=== PATIENT | female | born 1940 | race Caucasian/White ===

== ENCOUNTER → 2016-04-25 | Outpatient (CLI) | payer MEDICARE, OTHER ==
[~2016-04-25] MED LIST: ATIVAN0.5 MG PO; CARDI-OMEGA1000 MG PO; LEXAPRO 10MG10 MG PO; MULTIVITAMIN1 SGL PO; PREMARIN VAG42.5 GM TOP
== END ==
LOC: LAB 10:24
DX: Z00.00 Encounter for general adult medical examination without abnormal findings (principal); R15.9 Full incontinence of feces; R41.3 Other amnesia

== ENCOUNTER → 2017-04-24 | Outpatient (CLI) | payer MEDICARE, OTHER ==
[2015-12-19 19:51] VITALS: BP 128/70
[2017-04-24 08:53] LABS: EOS # 0.1 (0.04-0.40); EOS % 1.7 % (1.0-5.0); HEMATOCRIT 44.6 % (37.0-47.0); HEMOGLOBIN 14.6 g/dL (12.5-16.0); MEAN CELL VOLUME 96 fl (78-100); MEAN CORPUSCULAR HEMOGLOBIN 32 pg (27-31); MEAN CORPUSCULAR HGB CONC 33 g/dL (33-37); MEAN PLATELET VOLUME 8.9 fl (7.4-10.4); MONO # 0.5 (0.20-0.80); NEU # 3.8 (1.40-6.50); PLATELET COUNT 319 K/mm3 (130-400); RED BLOOD COUNT 4.63 M/mm3 (4.10-5.30); WHITE BLOOD COUNT 5.4 K/mm3 (4.8-10.8)
[2017-04-24 09:01] LABS: ALBUMIN 3.9 g/dL (3.5-5.0); BUN/CREATININE RATIO 17.2 (6.0-26.0); CALCIUM 9.4 mg/dL (8.4-10.2); POTASSIUM 4.2 mmol/L (3.6-5.0); TOTAL BILIRUBIN 0.5 mg/dL (0.2-1.3); TOTAL PROTEIN 6.9 g/dL (6.3-8.2)
[2017-04-24 23:46] LABS: T3 FREE 2.2 pg/mL (1.7-3.7)
== END ==
LOC: LAB 08:09
PROVIDERS: Nurse Practitioner Family
DX: R41.3 Other amnesia (principal); E05.90 Thyrotoxicosis, unspecified without thyrotoxic crisis or storm; R94.6 Abnormal results of thyroid function studies; Z88.1 Allergy status to other antibiotic agents; Z88.2 Allergy status to sulfonamides; Z88.7 Allergy status to serum and vaccine

== ENCOUNTER 2019-04-10 17:22 | Emergency (ER) | payer MEDICARE, OTHER ==
[2019-04-10] MEDS ORDERED: MUCINEX 60600 MG/TA1 PO (18:06)
[2019-04-10] MEDS ORDERED: MEDI-FIRST NON325 MG PO (18:07)
[2019-04-10] MEDS ORDERED: MAALOX ADVANCE355 M1 PO (18:08)
[2019-04-10] MEDS ORDERED: TAPAZOLE 5MG TAB5 MG PO (18:09)
[2019-04-10] MEDS ORDERED: GOOD NEIGH1200 MG/15 PO (18:09)
[2019-04-10] MEDS ORDERED: CITALOPRAM40 MG PO (18:10)
[2019-04-10] MEDS ORDERED: LATANOPROST 2.2.5 ML OU (18:11)
[2019-04-10] MEDS ORDERED: AZELASTINE HYDRO6 ML OU (18:11)
[2019-04-10] MEDS ORDERED: KAOPECTATE262 MG/15 PO (18:12)
[2019-04-10] MEDS ORDERED: OXY ×2 (18:13→18:14)
[2019-04-10 18:21] LABS: HEMOGLOBIN 14.1 g/dL (12.5-16.0); MEAN CELL VOLUME 95 fl (78-100); MEAN CORPUSCULAR HEMOGLOBIN 31 pg (27-31); MEAN CORPUSCULAR HGB CONC 33 g/dL (33-37); MEAN PLATELET VOLUME 9.2 fl (7.4-10.4); PLATELET COUNT 279 K/mm3 (130-400); RED BLOOD COUNT 4.54 M/mm3 (4.10-5.30); WHITE BLOOD COUNT 9.6 K/mm3 (4.8-10.8)
[2019-04-10 18:28] LABS: ALBUMIN 3.8 g/dL (3.4-4.8); POTASSIUM 3.9 mmol/L (3.5-5.1)
[2019-04-10 18:30] LABS: TOTAL PROTEIN 6.8 g/dL (6.2-8.1)
[2019-04-10 18:32] LABS: TOTAL BILIRUBIN 0.6 mg/dL (0.2-1.2)
[2019-04-10 18:44] LABS: LYMPHOCYTE 8 % (20-51); MONOCYTE 9 % (3-10); NEUTROPHILS 83 % (42-75)
[2019-04-10 18:47] LABS: URINE APPEARANCE CLEAR; URINE BILIRUBIN NEGATIVE (NEGATIVE); URINE BLOOD TRACE (NEGATIVE); URINE COLOR YELLOW; URINE GLUCOSE NEGATIVE (NEGATIVE); URINE KETONE 1+ (NEGATIVE); URINE NITRATE NEGATIVE (NEGATIVE); URINE PROTEIN(semi-quant) TRACE mg/dL (NEGATIVE); URINE UROBILINOGEN NORMAL (NORMAL)
[2019-04-10 18:48] LABS: URINE LEUKOCYTE ESTERASE NEGATIVE (NEGATIVE); URINE MUCUS PRESENT (NOT PRESENT)
[2019-04-11 11:09] VITALS: BP 146/74
== END 2019-04-11 10:55 | disposition home or self-care (01) ==
LOC: ED 17:22
PROVIDERS: Family Medicine
DX: G47.33 Obstructive sleep apnea (adult) (pediatric) (principal); R41.0 Disorientation, unspecified; E05.90 Thyrotoxicosis, unspecified without thyrotoxic crisis or storm; F03.90 Unspecified dementia, unspecified severity, without behavioral disturbance, psychotic disturbance, mood disturbance, and anxiety; Z72.820 Sleep deprivation
CPT/HCPCS: J7030

== ENCOUNTER → 2021-06-20 | Outpatient (CLI) | payer MEDICARE, OTHER ==
[~2021-06-20] MED LIST changes: +AZELASTINE HYDRO6 ML OU; +CITALOPRAM40 MG PO; +GOOD NEIGH1200 MG/15 PO; +KAOPECTATE262 MG/15 PO; +LATANOPROST 2.2.5 ML OU; +MAALOX ADVANCE355 M1 PO; +MEDI-FIRST NON325 MG PO; +MUCINEX 60600 MG/TA1 PO; +OXY; +TAPAZOLE 5MG TAB5 MG PO
== END ==
LOC: VAS 13:22
DX: I82.4Z2 Acute embolism and thrombosis of unspecified deep veins of left distal lower extremity (principal)

== ENCOUNTER 2021-07-13 11:55 | Emergency (ER) | payer MEDICARE, OTHER ==
[~2021-07-13] VITALS: Ht 167.6 cm; Wt 75.0 kg
[2021-07-13] MEDS ORDERED: ELIQUIS5 MG PO (12:24)
[2021-07-13] MEDS ORDERED: CELEXA 20MG20 MG/TA1 PO (12:25)
[2021-07-13] MEDS ORDERED: MELATONIN5 M6 PO (12:26)
[2021-07-13] MEDS ORDERED: CLARITIN10 M1 PO (12:26)
[2021-07-13 12:27] LABS: HEMATOCRIT 42.4 % (37.0-47.0); HEMOGLOBIN 14.1 g/dL (12.5-16.0)
[2021-07-13 12:59] VITALS: BP 131/84
== END 2021-07-13 13:00 | disposition home or self-care (01) ==
LOC: ED 11:55
PROVIDERS: Nurse Practitioner
DX: R04.0 Epistaxis (principal)

== ENCOUNTER → 2021-10-03 | Outpatient (CLI) | payer MEDICARE, OTHER ==
[~2021-10-03] MED LIST changes: +CELEXA 20MG20 MG/TA1 PO; +CLARITIN10 M1 PO; +ELIQUIS5 MG PO; +MELATONIN5 M6 PO
[2021-10-03 13:27] LABS: URINE APPEARANCE HAZY; URINE COLOR LYELLOW; URINE KETONE NEGATIVE (NEGATIVE); URINE PROTEIN(semi-quant) NEGATIVE (NEGATIVE)
[2021-10-03 13:28] LABS: URINE BILIRUBIN NEGATIVE (NEGATIVE); URINE BLOOD TRACE (NEGATIVE); URINE LEUKOCYTE ESTERASE NEGATIVE (NEGATIVE); URINE NITRATE NEGATIVE (NEGATIVE); URINE UROBILINOGEN NORMAL (NORMAL); URINE WBC 0-1 /hpf (0-3)
[2021-10-03 13:29] LABS: URINE MUCUS PRESENT (NOT PRESENT)
== END ==
LOC: LAB 11:14
PROVIDERS: Family Medicine
DX: R41.0 Disorientation, unspecified (principal)